=== PATIENT | female | born 1975 | race Hispanic/Latino ===

== ENCOUNTER 2024-09-28 06:14 | Emergency (ER) | payer BC ==
[~2024-09-28] VITALS: Ht 170.2 cm; Wt 64.4 kg
[2024-09-28 06:18] VITALS: PULSE 83; RESP 18; TEMP 96.6; O2SAT 98
[2024-09-28] MEDS ORDERED: AMOX TR-K CLV1 EAC2 PO (07:47)
[2024-09-28] MEDS ORDERED: NASACORT16.9 ML (07:47)
[2024-09-28] MEDS ORDERED: IBUPROFEN200 MG PO (07:47)
[2024-09-28] MEDS ORDERED: DIPHENHYDRAMINE25 M2 PO (07:47)
== END 2024-09-28 07:55 | disposition home or self-care (01) ==
LOC: FSED 06:28
DX: R05.9 Cough, unspecified (principal); J01.00 Acute maxillary sinusitis, unspecified; J30.9 Allergic rhinitis, unspecified; E78.00 Pure hypercholesterolemia, unspecified
CPT/HCPCS: 70486; 99283